=== PATIENT | female | born 1980 | race Caucasian/White ===

== ENCOUNTER 2016-07-12 23:11 | Inpatient (IN) | payer SELFPAY ==
[~2016-07-12] VITALS: Ht 152.4 cm; Wt 59.7 kg
[2016-07-13] MEDS ORDERED: POTASSIUM CHLOR 10 MEQ IV ONE (01:43)
[2016-07-13] MEDS ORDERED: [UNRECOGNIZED DRUG - OTHER] IV ONE (01:43)
[2016-07-13] MEDS ORDERED: SALINE FLUSH 10 ML FLUSH PRN (02:00)
[2016-07-13] MEDS ORDERED: BISACODYL EC 5 MG TAB PO PRN (02:00)
[2016-07-13] MEDS ORDERED: MAG HYDROX 30 ML UDC PO PRN (02:00)
[2016-07-13] MEDS ORDERED: ACETAMINOPHEN 325 MG TAB PO PRN (02:00)
[2016-07-13] MEDS ORDERED: ALU/MAG/SIM 30 ML UDC PO PRN (02:00)
[2016-07-13] MEDS ORDERED: BISACODYL 10 MG SUPP RECTAL PRN (02:00)
[2016-07-13] MEDS ORDERED: SODIUM CHLORIDE 0.9% 1,000 ML ONE (02:36)
[2016-07-13] MEDS: LACT RINGERS 1,000 ML IV SCH ×3 (03:34→20:29)
[2016-07-13 03:43] VITALS: RESP 20
[2016-07-13] MEDS ORDERED: POTASSIUM CHLORIDE 10 MEQ/50 ML IV SCH (04:00)
[2016-07-13 04:10] VITALS: BP_SYST 184; RESP 20; TEMP 98.7
[2016-07-13] MEDS: SODIUM CHLORIDE 0.9% FLUSH BAG 500 ML IV SCH (04:40)
[2016-07-13] MEDS ORDERED: POTASSIUM CHLORIDE PREMIX 50 ML IV SCH (04:55)
[2016-07-13] MEDS ORDERED: POTASSIUM CHLORIDE VIAL 10 MEQ, LIDOCAINE 1% 1 ML in SODIUM CHLORIDE 0.9% 50 ML IV SCH (05:00)
[2016-07-13] MEDS: NICOTINE 21 MG/24 HR TRANSDERM SCH ×2 (05:35→09:08)
[2016-07-13 06:12] VITALS: Ht 152.4 cm; Wt 59.7 kg
[2016-07-13] MEDS: DILAUDID 1 MG/ML AMP IV PRN ×6 (06:45→23:39)
[2016-07-13 07:27] VITALS: BP_SYST 154; RESP 18; TEMP 98.1
[2016-07-13] MEDS: SALINE FLUSH 10 ML FLUSH SCH ×2 (07:42→20:00)
[2016-07-13] MEDS: CEFTRIAXONE 1 GM in SODIUM CHLORIDE 0.9% 50 ML IV SCH (09:08)
[2016-07-13] MEDS ORDERED: PROPOFOL 50ML VIAL IV ONE (11:31)
[2016-07-13] MEDS ORDERED: LIDOCAINE 2% SYR 5 ML IV ONE (11:31)
[2016-07-13 12:00] VITALS: BP_SYST 149; RESP 18; TEMP 97.4
[2016-07-13 15:06] VITALS: BP_SYST 170; RESP 18; TEMP 98.3
[2016-07-13 20:30] VITALS: BP_SYST 184; RESP 20; TEMP 98.2
[2016-07-13] MEDS: POTASSIUM CHLORIDE PREMIX 50 ML IV SCH ×2 (20:38→22:46)
[2016-07-13] MEDS ORDERED: MISSING DOSE XX ONE (20:45)
[2016-07-13] MEDS: TEMAZEPAM 7.5 MG CAP PO PRN (21:02)
[2016-07-13] MEDS: ONDANSETRON 4 MG VIAL IV PRN (23:39)
[2016-07-14] VITALS (15 sets, daily range): BP systolic 104–192; RESP 16–18; TEMP 97.2–98.7
[2016-07-14] MEDS: POTASSIUM CHLORIDE PREMIX 50 ML IV SCH ×5 (00:50→16:53)
[2016-07-14] MEDS: LACT RINGERS 1,000 ML IV SCH ×3 (02:50→19:24)
[2016-07-14] MEDS: ONDANSETRON 4 MG VIAL IV PRN ×3 (04:00→19:24)
[2016-07-14] MEDS: DILAUDID 1 MG/ML AMP IV PRN ×3 (04:05→12:48)
[2016-07-14] MEDS: SODIUM CHLORIDE 0.9% FLUSH BAG 500 ML IV SCH (05:40)
[2016-07-14] MEDS ORDERED: LIDOCAINE 1% BUFFERED 1 ML SYR INTRADERM PRN (07:45)
[2016-07-14] MEDS ORDERED: LACT RINGERS 1,000 ML IV SCH (07:45)
[2016-07-14] MEDS ORDERED: ALU/MAG/SIM 30 ML UDC PO PRN (08:35)
[2016-07-14] MEDS ORDERED: LORAZEPAM 2 MG/ML VIAL IV ONE (08:35)
[2016-07-14] MEDS ORDERED: LORAZEPAM 2 MG TAB PO PRN (08:35)
[2016-07-14] MEDS: ENOXAPARIN 40 MG/0.4 ML SYR SUBQ SCH (09:00)
[2016-07-14] MEDS: SALINE FLUSH 10 ML FLUSH SCH ×2 (09:09→19:24)
[2016-07-14] MEDS: NICOTINE 21 MG/24 HR TRANSDERM SCH (09:10)
[2016-07-14] MEDS: CEFTRIAXONE 1 GM in SODIUM CHLORIDE 0.9% 50 ML IV SCH (09:10)
[2016-07-14] MEDS: THIAMINE 100 MG TAB PO SCH (09:56)
[2016-07-14] MEDS: FOLIC ACID 1 MG TAB PO SCH (09:56)
[2016-07-14] MEDS: MULTIVITS/MINERALS (THERAGRAN M) TAB PO SCH (09:56)
[2016-07-14] MEDS: BACLOFEN 10 MG TAB PO SCH ×3 (09:56→20:15)
[2016-07-14] MEDS: NADOLOL 20 MG TAB PO SCH (11:50)
[2016-07-14] MEDS ORDERED: KCL CR 20 MEQ TAB PO ONE (14:05)
[2016-07-14] MEDS: MORPHINE 2 MG/ML SYR IV PRN (19:46)
[2016-07-14] MEDS: TEMAZEPAM 7.5 MG CAP PO PRN (20:15)
[2016-07-14] MEDS ORDERED: MISSING DOSE XX ONE (20:15)
[2016-07-15] VITALS (10 sets, daily range): BP systolic 109–199; RESP 6–20; TEMP 97.9–98.4
[2016-07-15] MEDS: ONDANSETRON 4 MG VIAL IV PRN ×5 (02:38→23:36)
[2016-07-15] MEDS: MORPHINE 2 MG/ML SYR IV PRN ×2 (02:46→06:52)
[2016-07-15] MEDS: LACT RINGERS 1,000 ML IV SCH (03:33)
[2016-07-15] MEDS: SODIUM CHLORIDE 0.9% FLUSH BAG 500 ML IV SCH (05:47)
[2016-07-15] MEDS: SALINE FLUSH 10 ML FLUSH SCH ×2 (09:18→19:20)
[2016-07-15] MEDS: NICOTINE 21 MG/24 HR TRANSDERM SCH (09:19)
[2016-07-15] MEDS: NADOLOL 20 MG TAB PO SCH (09:20)
[2016-07-15] MEDS: ENOXAPARIN 40 MG/0.4 ML SYR SUBQ SCH (09:20)
[2016-07-15] MEDS: MULTIVITS/MINERALS (THERAGRAN M) TAB PO SCH (09:20)
[2016-07-15] MEDS: FOLIC ACID 1 MG TAB PO SCH (09:20)
[2016-07-15] MEDS: THIAMINE 100 MG TAB PO SCH (09:20)
[2016-07-15] MEDS: BACLOFEN 10 MG TAB PO SCH ×3 (09:20→19:47)
[2016-07-15] MEDS: LISINOPRIL 20 MG TAB PO SCH (16:26)
[2016-07-15] MEDS: TEMAZEPAM 7.5 MG CAP PO PRN (23:37)
[2016-07-16] VITALS (7 sets, daily range): BP systolic 107–140; RESP 16–20; TEMP 97.9–98.5
[2016-07-16] MEDS ORDERED: MISSING DOSE XX ONE (02:00)
[2016-07-16] MEDS: ONDANSETRON 4 MG VIAL IV PRN ×3 (04:02→13:35)
[2016-07-16] MEDS: SODIUM CHLORIDE 0.9% FLUSH BAG 500 ML IV SCH (06:00)
[2016-07-16] MEDS: SALINE FLUSH 10 ML FLUSH SCH (08:28)
[2016-07-16] MEDS: NADOLOL 20 MG TAB PO SCH (09:10)
[2016-07-16] MEDS: ENOXAPARIN 40 MG/0.4 ML SYR SUBQ SCH (09:10)
[2016-07-16] MEDS: BACLOFEN 10 MG TAB PO SCH (09:11)
[2016-07-16] MEDS: MULTIVITS/MINERALS (THERAGRAN M) TAB PO SCH (09:11)
[2016-07-16] MEDS: LISINOPRIL 20 MG TAB PO SCH (09:11)
[2016-07-16] MEDS: THIAMINE 100 MG TAB PO SCH (09:11)
[2016-07-16] MEDS: NICOTINE 21 MG/24 HR TRANSDERM SCH (09:12)
== END 2016-07-16 14:24 | disposition home or self-care (01) | DRG 439 ==
LOC: ENRESERVTM → ENRESERVDT → ER 23:11 → EMR 07-13 02:00 → ENPENDDIS 07-13 02:00 → 4NT 07-13 03:14
PROVIDERS: ADMIT Internal Medicine; ATTEND Internal Medicine
PROC: 0DB98ZX Excision of Duodenum, Via Natural or Artificial Opening Endoscopic, Diagnostic (ICD-10-PCS; principal; 2016-07-14 12:50)
DX: K85.20 Alcohol induced acute pancreatitis without necrosis or infection (principal); K31.5 Obstruction of duodenum; K74.60 Unspecified cirrhosis of liver; K70.10 Alcoholic hepatitis without ascites; F10.239 Alcohol dependence with withdrawal, unspecified; E87.6 Hypokalemia; E86.0 Dehydration; I86.4 Gastric varices; F17.200 Nicotine dependence, unspecified, uncomplicated; I10 Essential (primary) hypertension
CPT/HCPCS: 36415; 74176; 76705; 80053; 80074; 81001; 82330; 82784; 82787; 83540; 83690; 84466; 84478; 84703; 85025; 86038; 86256; 87088; 88305; 94799; 96361; 96365; 96375; 99223; 99232; 99233; 99239